=== PATIENT | male | born 1960 | race Caucasian/White ===

== ENCOUNTER → 2024-04-06 12:55 | Outpatient (REF) | payer OTHER, SELFPAY | LOC: HWRCS 12:55 | PROVIDERS: ATTENDING PHYSICIAN Nurse Practitioner; FAMILY PHYSICIAN Family Medicine | DX: I25.10 Atherosclerotic heart disease of native coronary artery without angina pectoris (principal); R00.2 Palpitations | CPT/HCPCS: 93306 ==

== ENCOUNTER → 2024-10-25 16:55 | Outpatient (REF) | payer OTHER, SELFPAY | LOC: PAVMRI 16:55 | PROVIDERS: ATTENDING PHYSICIAN Orthopaedic Surgery; FAMILY PHYSICIAN Family Medicine | DX: M25.562 Pain in left knee (principal) | CPT/HCPCS: 73721 ==

== ENCOUNTER → 2025-05-21 07:40 | Outpatient (REF) | payer OTHER, SELFPAY ==
--- NOTE | 2025-05-21 11:05 | CARDSERVLU ---
Echocardiogram with Lumason completed after protocol screening completed. Allergies verified.
Patent IV site: 22 g angio inserted in RAC, 1st attempt
IV site flushed with 0.9% NaCl pre and post administration.
Diluted bolus method utilized to enhance visualization of ventricular zhao.
Total volume given: 5 mL
Patient tolerated all procedures well without complications.
IV d/c'd and bandage applied after pressure held.
== END ==
LOC: RCS 07:40
PROVIDERS: ATTENDING PHYSICIAN Internal Medicine Cardiovascular Disease; FAMILY PHYSICIAN Family Medicine
DX: I10 Essential (primary) hypertension (principal)
CPT/HCPCS: 93306; Q9950

== ENCOUNTER → 2025-05-25 07:45 | Outpatient (REF) | payer OTHER, SELFPAY | LOC: RCS 07:45 | PROVIDERS: ATTENDING PHYSICIAN Internal Medicine Cardiovascular Disease; FAMILY PHYSICIAN Family Medicine | DX: I10 Essential (primary) hypertension (principal) | CPT/HCPCS: 78452; 93017; A9500; J2785 ==

== ENCOUNTER 2025-06-04 10:16 | Day surgery (SDC) | payer OTHER, SELFPAY ==
[2025-06-04] VITALS (12 sets, daily range): BP systolic 116–170; BP diastolic 58–89; BMI 40.4
[2025-06-04] MEDS: NSS 388 ML IV (12:57)
--- NOTE | 2025-06-04 15:24 | ITS.CL.CATH ---
[facility] - Catheterization
Cardiac Catheterization
Procedure Report:
CARDIAC CATHETERIZATION REPORT
Date of Procedure: 06/04/2025
Referring: Cricket Agustin M.D.
INDICATION: Known coronary artery disease, chest discomfort.
PROCEDURE:
1. Left heart catheterization.
2. Coronary angiography.
3. Bypass angiography.
A total of 38 minutes of procedural/moderate sedation was utilized. An independent associate medical director was present to assist with and help manage the patient's level of consciousness and physiologic status.
ACCESS:
1. 6 Scottish right common artery using a modified Seldinger technique with a micropuncture under ultrasound guidance.
CATHETERS:
1. 5 Scottish JL 4.
2. 5 Scottish JR4.
3. 5 Scottish CINTHIA.
HEMODYNAMIC DATA
Weight (kg): 129.3
AO (s/d/x, mmHg): 156/86/117
LV (s/x mmHg): 158/20 (A wave to 37)
LEFT VENTRICULOGRAPHY: Not performed.
CORONARY ANGIOGRAPHY
Dominance: Right.
Left Main: Normal size, trifurcating vessel. The vessel is critically diseased in its distal margin.
LAD: Normal size vessel giving rise to 1 significant diagonal. There is a 90% lesion in the origin of the LAD. The vessel is chronically totally occluded in its midportion.
Ramus: Congenitally absent.
Circumflex: Large size, nondominant vessel giving rise to 3 obtuse marginals. The vessel is chronically totally occluded at its origin. There is a 90% lesion in the AV groove circumflex, after the origin of OM1 and proximal to the origin of OM 2.
RCA: Normal size, dominant vessel. The vessel is chronically totally occluded in its midportion but reconstitutes in the distal vessel and is supplied by retrograde epicardial collateral from the right ventricular marginal to the apical RPDA.
The mid RPDA is diffusely diseased.
BYPASS GRAFT ANGIOGRAPHY
DE [place] CRUZ to LAD: Normal size graft with end-to-side anastomosis to the mid LAD. There is no evidence of stenosis or graft degeneration.
SSVG to D1 to OM1 to OM2: Large size graft with [id number] anastomosis to the first diagonal, [id number] anastomosis to OM1 and end-to-side anastomosis to OM 2. There is no evidence of stenosis or graft degeneration.
INTERVENTION(S)
None.
Closure Device: 6 Scottish Angio-Seal.
Radiation (mGy): 79.88
DAP (cm2.Gy): 52.9455
Fluoroscopy time (minutes): 4.0
CONCLUSIONS
1. Right dominant circulation with critical stenosis of the distal left main, a 90% lesion in the origin of the LAD with chronic total occlusion in the proximal mid vessel, chronic total occlusion at the origin of the circumflex, and 90% lesion in
the AV groove circumflex after the origin of OM1 but proximal to the origin of OM 2 and chronic total occlusion of the mid RCA with reconstitution of the distal RCA through an epicardial collateral from the RV marginal to the apical RPDA with
diffuse disease of the mid RPDA.
2. Status post prior bypass (patent DE [place] CRUZ to mid LAD, patent sequential SVG to D1 then OM1 then OM 2).
3. Moderately elevated filling pressures (LVEDP = 20 mmHg at 129.3 kg) with evidence of diastolic dysfunction (A wave to 37 mmHg).
RECOMMENDATIONS:
1. Expectant management after cardiac catheterization via right common femoral approach.
2. Limited weight bearing for one week.
3. The patient would benefit from reduction in filling pressures. Discontinue losartan/hydrochlorothiazide. Restart losartan monotherapy and furosemide 40 mg daily. BMP in 1 week.
4. OMT/GDMT as hemodynamics will tolerate. Consider outpatient SGLT2 inhibitors.
5. Continue aggressive secondary prevention with high-dose, high potency statin. Goal LDL <55.
6. Increase pantoprazole to 40 mg twice daily and consider discontinuation of meloxicam as this can cause GI upset which may cause the symptoms.
7. Stable for outpatient follow-up.
Copy to: Cricket Agustin M.D., Jazmin Reeves D.O.
Vincent Maurice DO, FACC, FACP
== END 2025-06-04 18:15 | disposition home or self-care (01) ==
LOC: CATH 10:16
PROVIDERS: ATTENDING PHYSICIAN Internal Medicine Cardiovascular Disease; FAMILY PHYSICIAN Family Medicine; REFERRING PHYSICIAN Internal Medicine Cardiovascular Disease
DX: I25.10 Atherosclerotic heart disease of native coronary artery without angina pectoris (principal); R07.89 Other chest pain; I25.82 Chronic total occlusion of coronary artery; Z95.1 Presence of aortocoronary bypass graft; I10 Essential (primary) hypertension; E78.5 Hyperlipidemia, unspecified; E03.9 Hypothyroidism, unspecified; K21.9 Gastro-esophageal reflux disease without esophagitis; Z79.82 Long term (current) use of aspirin
CPT/HCPCS: 99152; 99153; C1894; 93459; Q9967